=== PATIENT | female | born 1945 | race African-American/Black ===

== ENCOUNTER → 2020-01-31 10:00 | Outpatient (CLI) | payer MEDICARE, SELFPAY ==
--- NOTE | ~2020-01-31 | MM_ITS ---
EXAMINATION: MM screening [facility] w davion HISTORY: Screening mammogram TECHNIQUE: Craniocaudal and mediolateral oblique 3-D tomosynthesis images were obtained and synthetic 2-D images were generated. CAD analysis was submitted and interpreted. COMPARISON: 12/08/2017, 12/06/2016, 12/05/2015 bilateral digital screening mammogram examinations BREAST PARENCHYMAL COMPOSITION: The breasts are heterogeneously dense, which may obscure small masses . FINDINGS: A biopsy marker is again noted on each side; history of prior bilateral benign breast biops ies. Bilateral benign calcifications. There is no evidence of suspicious mass, calcification, or sfdc solution architect ural distortion to suggest malignancy in either breast. There has been no suspicious interval change. IMPRESSION: 1. No mammographic evidence of malignancy. 2. Recommend routine screening mammography in one year. BI-RADS Category 2: Benign Reviewed, dictated and finalized at location A.
== END ==
PROVIDERS: PCP Family Medicine Adolescent Medicine; Visit Provider Family Medicine Adolescent Medicine
DX: Z12.31 Encounter for screening mammogram for malignant neoplasm of breast (principal)
CPT/HCPCS: 77063; 77067

== ENCOUNTER → 2020-09-03 12:52 | Outpatient (CLI) | payer MEDICARE, SELFPAY ==
--- NOTE | ~2020-09-03 | MR_ITS ---
EXAMINATION: MR brain/brain stem wo con DATE: 09/03/2020 13:37 INDICATION: Expressive aphasia. TECHNIQUE: Magnetic resonance imaging (MRI) of the brain and brainstem was performed without intraven ous contrast. Sequences included sagittal and axial T1-weighted FSE, axial diffusion-weighted FS EPI, axial T2*-weighted GRE, axial T2-weighted FLAIR Propeller, and axial T2-weighted Propeller. Apparent diffusion coefficient (ADC) maps were created. COMPARISON: None. FINDINGS: There is an empty sella. There are scattered areas of nonspecific increased T2-weighted s ignal intensity in the cerebral white matter. There is no intracranial hemorrhage, acute infarction, or abnormal intracranial mass lesion. The ventricles are normal in size. The paranasal sinuses are cl ear. There are likely changes of ocular lens replacement surgeries. The mastoid air cells are normal. IMPRESSION: 1. Moderate nonspecific cerebral white matter disease, which likely represents chronic small vessel i schemic disease. Reviewed, dictated and finalized at location B. IMPRESSION: 1. Moderate nonspecific cerebral white matter disease, which likely represents chronic small vessel ischemic disease.
== END ==
PROVIDERS: PCP Family Medicine Adolescent Medicine; Visit Provider Physician Assistant
DX: R13.0 Aphagia (principal); R93.0 Abnormal findings on diagnostic imaging of skull and head, not elsewhere classified
CPT/HCPCS: 70551

== ENCOUNTER → 2021-02-12 11:05 | Outpatient (CLI) | payer MEDICARE, SELFPAY ==
--- NOTE | ~2021-02-12 | MM_ITS ---
EXAMINATION: MM screening [facility] w davion HISTORY: Screening TECHNIQUE: Craniocaudal and mediolateral oblique 3-D tomosynthesis images were obtained and synthetic 2-D images were generated. CAD analysis was submitted and interpreted. COMPARISON: Comparison to multiple prior studies sequentially, with oldest reviewed study dated 12/01. BREAST PARENCHYMAL COMPOSITION: The breasts are extremely dense, which lowers the sensitivity of mamm ography. FINDINGS: There is no evidence of suspicious mass, calcification, or architectural distortion to sugg est malignancy in either breast. There has been no suspicious interval change. IMPRESSION: 1. No mammographic evidence of malignancy. 2. Recommend routine screening mammography in one year. BI-RADS Category 1: Negative Reviewed, dictated and finalized at location A.
== END ==
PROVIDERS: PCP Family Medicine Adolescent Medicine; Visit Provider Family Medicine Adolescent Medicine
DX: Z12.31 Encounter for screening mammogram for malignant neoplasm of breast (principal)
CPT/HCPCS: 77063; 77067

== ENCOUNTER 2022-01-17 14:31 | Emergency (ER) | payer MEDICARE, SELFPAY ==
[2022-01-17] VITALS (7 sets, daily range): BP systolic 110–131; BP diastolic 65–91; PULSE 74–99; RESP 16–22; TEMP 36.6; O2SAT 99–100
--- NOTE | ~2022-01-17 | XR_ITS ---
EXAMINATION: XR hip RT 2V w AP pelvis INDICATION: Right hip pain TECHNIQUE: AP view of the pelvis and two views of the right hip are obtained. COMPARISON: 03/10/2014 FINDINGS: Bone alignment is normal. There is no fracture. There is mild to moderate osteoarthritis of the hips. Phleboliths are noted in the pelvis. There is severe lumbar spondylosis. IMPRESSION: 1. Osteoarthritis without acute osseous abnormality. Reviewed, dictated and finalized at location A.
--- NOTE | ~2022-01-17 | CT_ITS ---
EXAMINATION: CT lumbar spine wo con DATE: 01/17/2022 17:16 INDICATION: back pain . TECHNIQUE: Computed tomography (CT) of the lumbar spine was performed without intravenous contrast. A utomated exposure control and iterative reconstruction technique were employed. The dose-length produ ct was 212.90 mGy-cm. COMPARISON: None. FINDINGS: Mild lumbar scoliosis. 5 nonrib-bearing lumbar-type vertebral bodies. Pedicles intact. 5 mm anterolisthesis at L3-4. 7 mm anterolisthesis at L4-5. Vertebral body heights preserved. Severe disc space narrowing with vacuum phenomenon at L3-4 and L4-5. Mild disc space narrowing at L5-S1. Multile quique facet hypertrophy and sclerosis in the lower lumbar spine, with interspinous narrowing and degene rative change at L3-4 and L4-5. Multilevel moderate bilateral neural foraminal narrowing. Moderate ce ntral canal stenosis at L4-5. Degenerative change in the bilateral sacroiliac joints. 3.2 cm left ova eloy cyst. IMPRESSION: 1. No acute fracture or traumatic malalignment in the lumbar spine. 2. Grade 1 anterolisthesis at L3-4, grade 2 anterolisthesis at L4-L5, both presumably on a degenerati ve basis. Severe degenerative disc disease at L3-4 and L4-5. Severe lower lumbar facet arthropathy. I nterspinous impingement at L3-4 and L4-5. 3. 3.2 cm left ovarian cyst, recommend nonemergent but timely outpatient pelvic ultrasound for furthe r characterization. Reviewed, dictated and finalized at location K. IMPRESSION: 1. No acute fracture or traumatic malalignment in the lumbar spine. 2. Grade 1 anterolisthesis at L3-4, grade 2 anterolisthesis at L4-L5, both pres umably on a degenerative basis. Severe degenerative disc disease at L3-4 and L4 -5. Severe lower lumbar facet arthropathy. Interspinous impingement at L3-4 and L4-5. 3. 3.2 cm left ovarian cyst, recommend nonemergent but timely outpatient pelvic ultrasound for further characterization.
--- NOTE | 2022-01-17 16:27 | ED.BACK ---
HPI - Back Pain/Injury General Chief Complaint: Back Pain/Injury Stated Complaint: back pain Time Seen by Provider: 01/17/22 16:21 Source: RN notes reviewed History of Present Illness HPI Narrative: Patient presents emergency room from home for right lower back pain. Patient states symptoms been ongoing for the past 2 weeks. States symptoms initially began 2 weeks ago she got up out of bed and was walking on the [place] and she suddenly had pain in the right lower back in the region of the buttock she states since that time she had pain in that region pain is worse with movement she denies any direct trauma or injury she denies any fevers or chills abdominal pain bowel or bladder incontinence numbness or weakness to the extremities or any other symptoms. States she had called her PCP and had been placed on steroids which she just finished Monday she notes minimal relief with these Related Data Home Medications Medication Instructions Recorded Confirmed aspirin 81 mg tablet,delayed 81 mg PO DAILY 08/17/21 08/17/21 release (Adult Aspirin Regimen) magnesium oxide 400 mg PO BID 08/18/21 Allergies Allergy/AdvReac Type Severity Reaction Status Date / Time Sulfa (Sulfonamide Allergy Mild FEVER AND Verified 01/17/22 16:23 Antibiotics) CHILLS sulfanilamide Allergy Unknown Fever and Verified 01/17/22 16:23 chills Review of Systems Review of Systems: Gen.: Denies fevers or chills ENT: Denies congestion Respiratory: Denies shortness of breath or cough CV: Denies chest pain or palpitations GI: Denies abdominal pain nausea, emesis or diarrhea denies burning, urgency, frequency or hematuria denies incontinence Musculoskeletal: see HPI Neuro: Denies numbness, tingling, weakness or focal weakness Skin: Denies rash Except as documented, all other systems reviewed and negative [facility] Past Medical History Medical History (Updated 01/17/22 @ 17:42 by Nemesio Byrne DO) Essential (primary) hypertension Surgical History Surgical History (Updated 08/16/21 @ 07:52 by Binh Ace MD) History of shoulder surgery 2012 Left rotator cuff repair Family History Family History (Updated 08/17/21 @ 09:33 by Trent Vazquez MA) Unknown Breast cancer Cerebrovascular accident Heart disease Unknown Breast cancer Cerebrovascular accident Mother Cerebrovascular accident Unknown Cerebrovascular accident Sibling Cerebrovascular accident Colon polyp Diabetes mellitus Hypertension Sibling Cerebrovascular accident Diabetes mellitus Hypertension Father Hypertension Social History Social History Smoking status: Never smoker Second hand tobacco smoke exposure: No Alcohol intake: current Alcohol use details: Rarely Substance use: never Substance use type: does not use Gender identity (if verbalized by the patient): Female Sexual Orientation (if Verbalized by the Patient): Straight or Heterosexual Spiritual care concerns: No Agree to blood products: Yes Exam Narrative: APPEARANCE: No acute distress, nontoxic, resting in bed Eyes: EOMI HEENT: Normocephalic, atraumatic, CV: Regular rate and rhythm without murmur RESPIRATORY: No respiratory distress. Clear to auscultation bilaterally. Abdomen: Soft and nontender, no rebound or guarding MUSCULOSKELETAl: Moves all extremities, no clubbing cyanosis or edema Back: No midline lumbar tenderness to palpation or step-off, tender to palpation over right paravertebral muscles L4-5 right piriformis region, pain increased with forward flexion NEURO: Awake and alert. Following commands, speech normal, no focal deficits, muscle strength 5 out of 5 bilateral lower extremities, bilateral patellar reflex 2+ SKIN:: Warm, dry. Normal Color no rash or lesions Course Course Emergency Course: Discussed with Dr. Sutton presentation work-up agrees with plan for discharge with [facility]
[2022-01-17] MEDS: KETOROLAC 15 MG/ML VIAL (*BKC) IV PUSH (16:53)
[2022-01-17] MEDS: diazePAM INJ (*CRX) 10 MG/2 ML SYRINGE 2 MG IV PUSH (16:53)
== END 2022-01-17 18:23 | disposition home or self-care (01) ==
PROVIDERS: Emergency Provider Emergency Medicine; PCP Family Medicine Adolescent Medicine
DX: M54.30 Sciatica, unspecified side (principal); N83.202 Unspecified ovarian cyst, left side; I10 Essential (primary) hypertension; M16.11 Unilateral primary osteoarthritis, right hip
CPT/HCPCS: 72131; 73502; 96374; 96375; 99284; J1885; J3360

== ENCOUNTER → 2022-07-15 16:39 | Outpatient (CLI) | payer MEDICARE, SELFPAY ==
--- NOTE | ~2022-07-15 | MM_ITS ---
EXAMINATION: MM screening [facility] BI w davion HISTORY: Screening mammogram TECHNIQUE: Craniocaudal and mediolateral oblique 3-D tomosynthesis images were obtained and synthetic 2-D images were generated. CAD analysis was submitted and interpreted. COMPARISON: 02/12/2021, 01/31/2020, 12/08/2017 bilateral screening mammogram examinations BREAST PARENCHYMAL COMPOSITION: The breasts are extremely dense, which lowers the sensitivity of mamm ography. FINDINGS: There is evidence of a biopsy marker on each side. History of prior bilateral benign breast biopsies was referred to on 01/31/2020 screening mammogram examination. Scattered bilateral benign c alcifications. There is no evidence of suspicious mass, calcification, or architectural distortion to suggest malignancy in either breast. There has been no suspicious interval change. IMPRESSION: 1. No mammographic evidence of malignancy. 2. Recommend routine screening mammography in one year. BI-RADS Category 2: Benign finding(s). Reviewed, dictated and finalized at location A.
== END ==
PROVIDERS: PCP Family Medicine Adolescent Medicine; Visit Provider Family Medicine Adolescent Medicine
DX: Z12.31 Encounter for screening mammogram for malignant neoplasm of breast (principal)
CPT/HCPCS: 77063; 77067

== ENCOUNTER 2023-07-27 13:56 | Outpatient (CLI) | payer MEDICARE, SELFPAY ==
--- NOTE | ~2023-07-27 | MM_ITS ---
EXAMINATION: MM screening [facility] w davion HISTORY: Screening TECHNIQUE: Craniocaudal and mediolateral oblique 3-D tomosynthesis images were obtained and synthetic 2-D images were generated. CAD analysis was submitted and interpreted. COMPARISON: Comparison to multiple prior studies sequentially, with oldest reviewed study dated 01/09. BREAST PARENCHYMAL COMPOSITION: Dense: The breasts are heterogeneously dense, which may obscure small masses FINDINGS: There is no evidence of suspicious mass, calcification, or architectural distortion to sugg est malignancy in either breast. There has been no suspicious interval change. IMPRESSION: 1. No mammographic evidence of malignancy. 2. Recommend routine screening mammography in one year. BI-RADS Category 1: Negative Reviewed, dictated and finalized at location B.
== END 2023-07-27 13:57 ==
LOC: MICIMG 13:57
PROVIDERS: PCP Family Medicine Adolescent Medicine; Visit Provider Family Medicine Adolescent Medicine
DX: Z12.31 Encounter for screening mammogram for malignant neoplasm of breast (principal)
CPT/HCPCS: 77063; 77067

== ENCOUNTER 2024-07-29 13:34 | Outpatient (CLI) | payer MEDICARE, SELFPAY ==
--- NOTE | ~2024-07-29 | MM_ITS ---
EXAMINATION: MM screening [facility] BI w davion HISTORY: Screening TECHNIQUE: Craniocaudal and mediolateral oblique 3-D tomosynthesis images were obtained and synthetic 2-D images were generated. CAD analysis was submitted and interpreted. COMPARISON: and dating back to 12/08/2017 BREAST PARENCHYMAL COMPOSITION: The breasts are heterogeneously dense, which may obscure small masses . FINDINGS: Punctate and bulky calcifications are detected bilaterally, stable and benign in appearance . Microclip within the upper outer quadrant of the bilateral breasts, consistent with patient's history . Punctate calcifications detected bilaterally, vascular in origin and benign in appearance. Stable parenchymal pattern without suspicious microcalcifications, architectural distortion, discrete masses or significant asymmetry. IMPRESSION: 1. No mammographic evidence of malignancy. 2. Recommend routine screening mammography in one year. BI-RADS Category 2: Benign finding(s). Reviewed, dictated and finalized at location A.
== END 2024-07-29 13:35 | disposition home or self-care (01) ==
LOC: MICIMG 13:35
PROVIDERS: PCP Family Medicine Adolescent Medicine; Visit Provider Family Medicine Adolescent Medicine
DX: Z12.31 Encounter for screening mammogram for malignant neoplasm of breast (principal)
CPT/HCPCS: 77063; 77067